=== PATIENT | male | born 1965 | race African-American/Black ===

== ENCOUNTER 2017-01-12 00:03 | Emergency (ER) | payer MEDICARE, OTHER ==
[~2017-01-12] VITALS: Ht 180.3 cm; Wt 77.1 kg
--- NOTE | ~2017-01-12 | CR72 ---
[facility] A Service of [facility] RADIOLOGY TEXT RESULTS PATIENT: WINSTON DUCKWORTH LOCATION: SED : 61 UNIT #: [id number] AGE: [address]: Alfonso Hopkins MD SEX: M ORDER DR: [id number] [address] [address] [id number] E MR#: [id number] Acc #: [id number] NAME: WINSTON DUCKWORTH : 1965 SEX: M STUDY DATE/TIME: 01/12/2017 01:22 UNIT: SED ROOM: STUDY DESCRIPTION: CR Chest Single View Portable Attending Physician: Alfonso Hopkins M.D. Ordering Physician: Alfonso Hopkins M.D. Primary Care Physician: No Primary Care Physician MEDICAL IMAGING REPORT This report is preliminary unless electronic signature is present. EXAM Chest x-ray, 01/12/2017 at 01:22. INDICATIONS Chest pain and shortness of air for one month. History of hypertension. COMPARISON 05/08/2016 FINDINGS A single AP portable view of the chest shows both lungs to be clear. The heart is normal in size. The mediastinal contour is normal. No significant bone abnormalities are seen. IMPRESSION Normal portable chest. Dictated by... Marcello Kay Jr., M.D. THIS IS AN ELECTRONICALLY VERIFIED REPORT Mracello Kay Jr., M.D. at 01/13/2017 4:56 AM SU/donna TD: 01/12/2017 22:08 JOB #: [id number] MEDICAL IMAGING REPORT Page 1 of 1
--- NOTE | ~2017-01-12 | EKG ---
PATIENT: WINSTON DUCKWORTH UNIT #: [id number] Ventricular Rate: 76 BPM Atrial Rate: 76 BPM P-R Interval: 166 ms QRS Duration: 64 ms Q-T Interval: 370 ms QTC Calculation(Bezet): 416 ms P [place]: -26 degrees Calculated R [place]: 49 degrees Calculated T [place]: -5 degrees Diagnosis Line: Normal sinus rhythm Diagnosis Line: Nonspecific ST and T wave abnormality Diagnosis Line: Abnormal ECG Diagnosis Line: When compared with ECG of 08-MAY-2016 23:04, Diagnosis Line: No significant change was found Diagnosis Line: Confirmed by CLEMENTE WARE MD ([id number]) on Diagnosis Line: 01/14/2017 3:09:08 PM INTERPRETING MD: JEANIE ARGUELLO
[~2017-01-12 00:03] MED LIST: AMOXIL500 MG PO; BACTRIM DS TABL1 TA1 PO; BIPOLAR MED; BP MED; CHOLESTEROL MED; FLEXERIL PO; HCTZ PO; HYDROCODON-ACE1 EACH PO; IBUPROFEN PO; IBUPROFEN800 MG PO; KEFLEX500 M2 PO; LISINOPRIL PO; LORTAB 5-325 M1 EACH PO; LORTAB 5/500 TA1 TA1 PO; LORTAB 7.5-5001 TAB PO; MEDROL PO; MEDROL4 MG/DOSE- PO; METOPROLOL SUCC25 MG PO; MOBIC PO; MUCINEX PO; NO MEDICATIONS; P MED; PERCOCET5/325 PO; PREDNISONE PO; ROBAXIN500 MG PO; TYLENOL #3 PO; VICODIN 5/500 T1 TAB PO; ZESTORETIC 20/21 TAB PO; ZITHROMAX PO; [UNRECOGNIZED DRUG - OTHER]
[2017-01-12] MEDS ORDERED: CHOLESTEROL MED (00:17)
[2017-01-12 00:43] LABS: POC - CKMB <1.0 ng/mL (0.0-7.9); POC - TROPONIN <0.05 ng/mL (<=0.05)
[2017-01-12 01:26] LABS: BASOPHIL% 0.4 % (0-2.5); DIFF IND NO; EOSINOPHIL# 0.2 X10e3 (0-0.7); EOSINOPHIL% 1.8 % (0.0-7.0); HEMATOCRIT 45.1 % (38.0-50.0); LYMPHOCYTE# 4.5 X10e3 (1.0-3.5); LYMPHOCYTE% 44.6 % (17.0-45.0); MEAN CELL VOLUME 86.7 FL (83-96); MEAN CORPUSCULAR HEMOGLOBIN 28.8 PG (28-34); MEAN CORPUSCULAR HGB CONC 33.2 g/dL (30-36); MEAN PLATELET VOLUME 8.1 FL (6.5-11.5); MONOCYTE# 0.8 X10e3 (0-1.0); MONOCYTE% 7.7 % (3.0-12.0); NEUTROPHIL# 4.6 X10e3 (1.5-7.1); NEUTROPHIL% 45.5 % (40-75); PLATELET COUNT 156 X10e3 (140-420); RED CELL DISTRIBUTION WIDTH 14.8 % (11.0-15.5)
[2017-01-12 01:31] LABS: ALBUMIN SERUM 3.4 g/dL (3.5-5.0); BILIRUBIN,TOTAL 0.8 mg/dL (0.2-2.0); BUN/CREATININE RATIO 10.9; CALCIUM SERUM 8.3 mg/dL (8.4-10.2); CREATININE SERUM 1.1 mg/dL (0.6-1.4); GLOM FILT RATE Estimated 88.4 mL/min (>60); POTASSIUM 3.4 mmol/L (3.5-5.1); PROTEIN TOTAL SERUM 5.6 g/dL (6.0-8.3)
== END 2017-01-12 02:22 | disposition home or self-care (01) ==
LOC: SED 00:03
DX: R07.89 Other chest pain (principal); I10 Essential (primary) hypertension; E78.5 Hyperlipidemia, unspecified
CPT/HCPCS: 36415; 71010; 80053; 82553; 84484; 85025; 93005; 99285